=== PATIENT | male | born 1990 | race Two or more races ===

== ENCOUNTER 2018-06-28 01:22 | Emergency (ER) | payer OTHER ==
[2018-06-28 01:31] VITALS: BP 114/65; PULSE 73; TEMP 97.7; BMI 27.3
[2018-06-28] MEDS ORDERED: IBUPROFEN 600 MG TABLET (FP) PO ONE ×2 (01:36→01:38)
--- NOTE | 2018-06-28 01:37 | PDOC ---
History of Present Illness - General Chief Complaint: Injury Stated Complaint: RT WRIST PAIN Time Seen by Provider: 06/28/18 01:35 History Source: Patient Exam Limitations: No Limitations - History of Present Illness Initial Comments: 06/28/18 01:36 This is a 27-year-old male was playing basketball yesterday evening when he fell onto his right hand. Patient comes in complaining of pain in his right hand and wrist. Patient denies any hitting his head or any other trauma. PAST MEDICAL HISTORY: no significant history PAST SURGICAL HISTORY: no significant history FAMILY HISTORY: no pertinant history SOCIAL HISTORY: Pt lives with family and is employed. MEDICATIONS: reviewed ALLERGIES: As per nursing notes Review of Systems General: No fevers or chills, no weakness, no weight loss HEENT: No change in vision. No sore throat,. No ear pain CardioVascular: No chest pain or shortness of breath Respiratory:No cough, or wheezing. Gastrointestinal: no nausea, vomitting, diarrhea or constipation, No rectal bleeding Genitourinary: No dysuria, hematuria, or frequency Musculoskeletal: Right wrist and hand pain post fall Neurologic: No headache, vertigo, dizziness or loss of consciousness Psychiatric: nor depression Skin: No rashes or easy bruising Endocrine: no increased thirst or abnormal weight change Allergic: no skin or latex allergy All other systems reviewed and normal GENERAL: The patient is awake, alert, and fully oriented, in no acute distress. HEAD: Normal with no signs of trauma. EYES: Pupils equal, round and reactive to light, extraocular movements intact, sclera anicteric, conjunctiva clear. EXTREMITIES right wrist and hand: There is tenderness over the lateral wrist and dorsum of the hand. Neurovascular distal is intact. There is no tenderness of the elbow. There is decreased range of motion secondary to pain NEUROLOGICAL: Normal speech, normal gait. grossly intact PSYCH: Normal mood, normal affect. SKIN: Warm, Dry, normal turgor, no rashes or lesions noted. 06/28/18 02:24 X-ray right wrist: there is no fracture, dislocation, no acute pathology Assessment and plan: 27-year-old male comes in complaining of right wrist pain post fall while playing basketball earlier this evening. Patient is a baby. Patient x-rays were negative for any acute pathology. Patient discharged home will follow-up with his primary care doctor as needed. 06/28/18 06:17 Past History - Past Medical History Allergies/Adverse Reactions: Allergies Allergy/AdvReac Type Severity Reaction Status Date / Time No Known Allergies Allergy Unverified 06/28/18 01:25 Home Medications: Ambulatory Orders NK [No Known Home Medication] 06/28/18 COPD: No - Suicide/Smoking/Psychosocial Hx Smoking History: Never smoked *Physical Exam - Vital Signs Last Vital Signs Temp Pulse Resp BP Pulse Ox 97.7 F 73 16 114/65 98 06/28/18 01:27 06/28/18 01:27 06/28/18 01:27 06/28/18 01:27 06/28/18 01:27 *DC/Admit/Observation/Transfer Diagnosis at time of Disposition: Wrist pain, acute Qualifiers: Laterality: right Qualified Code(s): M25.531 - Pain in right wrist - Discharge Dispostion Disposition: HOME Condition at time of disposition: Stable Decision to Admit order: No - Referrals Referrals: Mariia Pryor MD [Primary Care Provider] - - Patient Instructions Additional Instructions: For the pain take Tylenol or Motrin. Return to the emergency department immediately with ANY new, persistent or worsening symptoms. Continue any medications as previously prescribed by your physician. You should follow up with your primary doctor as soon as possible regarding today's emergency department visit. . Please make sure your doctor reviews the results of your emergency evaluation. Thank you for coming to the Emergency Department today for your care. It was a pleasure to see you today. Please note that your evaluation is INCOMPLETE until you follow-up with your doctor. - Post Discharge Activity
== END 2018-06-28 02:29 | disposition home or self-care (01) ==
LOC: FER 01:22
DX: M25.531 Pain in right wrist (principal)
CPT/HCPCS: 73110-TC-RT-FY; 73130-TC-RT-FY; 99281-25

== ENCOUNTER 2019-05-25 10:31 | Emergency (ER) | payer OTHER ==
[2019-05-25 10:39] VITALS: BP 123/79; PULSE 55; TEMP 98.6; BMI 27.0
[2019-05-25] MEDS ORDERED: IBUPROFEN 600 MG TABLET (FP) PO ONE ×2 (11:22→11:29)
--- NOTE | 2019-05-25 12:06 | PDOC ---
History of Present Illness - General Chief Complaint: Injury Stated Complaint: righ hand and right knee pain s/p fall yesterday - History of Present Illness Initial Comments: 05/25/19 11:58 28 yo male no pmhx s/p trip and fall outstretched hand while playing cricket, here with right wrist pain. and right knee pain. no head trauma. no neck or back pain. pain worse with bending and walking. feels clicking sensation in his right knee. pain worse wtih movement. saima not take any medication for pain using topical turmuric. no prior surgery on joints. no prior injuries. Past History - Past Medical History Allergies/Adverse Reactions: Allergies Allergy/AdvReac Type Severity Reaction Status Date / Time No Known Allergies Allergy Verified 05/25/19 10:42 Home Medications: Ambulatory Orders NK [No Known Home Medication] 06/28/18 COPD: No Other medical history: pt denies - Suicide/Smoking/Psychosocial Hx Smoking History: Never smoked Hx Alcohol Use: No Drug/Substance Use Hx: No Review of Systems - Review of Systems Constitutional: No: Chills, Diaphoresis HEENTM: No: Eye Pain Respiratory: No: Cough, Orthopnea ABD/GI: No: Abdominal Distended Musculoskeletal: Yes: Joint Pain Integumentary: No: Bruising All Other Systems: Reviewed and Negative *Physical Exam - Vital Signs Last Vital Signs Temp Pulse Resp BP Pulse Ox 98.6 F 55 L 18 123/79 100 05/25/19 10:32 05/25/19 10:32 05/25/19 10:32 05/25/19 10:32 05/25/19 10:32 - Physical Exam Comments: 05/25/19 12:00 awake alwert head atraumatic. no cervical spine tenderness. lungs clear bilat. heart rrr no mrg ext right wrist from nontendere. no snuff box tenderness. right hand ttp over index MCP, no deformity, min swelling. no eccymosis. 2 + rad / ulnar pulses. elbow, shoulder NT FROm. right knee from. no bony deformity. min swelling. ankle hip NT fRO. all else ext NT FROM. ED Treatment Course - RADIOLOGY Radiology Studies Ordered: Category Date Time Status KNEE 3 POS-RIGHT [RAD] Stat Radiology 05/25/19 11:21 Ordered WRIST- RIGHT [RAD] Stat Radiology 05/25/19 11:20 Ordered - Medications Given in the ED: ED Medications Discontinued Medications Generic Name Dose Route Start Last Admin Trade Name Nicole PRN Reason Stop Dose Admin Ibuprofen 600 mg 05/25/19 11:22 05/25/19 11:31 Motrin - PO 05/25/19 11:23 600 mg ONCE ONE Administration Medical Decision Making - Medical Decision Making 05/25/19 12:06 28 yo male with FOOSH right hand and knee pain.plan xray hand right r/o fx, right knee r/o fx xray negative for fx. plan dc home. ortho fu for knee pain as needed. 05/25/19 12:24 *DC/Admit/Observation/Transfer Diagnosis at time of Disposition: Knee injury - Discharge Dispostion Disposition: HOME Condition at time of disposition: Improved Decision to Admit order: No - Referrals Referrals: Mariia Pryor MD [Primary Care Provider] - Yuri Cervantes MD [Staff Physician] - - Patient Instructions Printed Discharge Instructions: Knee Sprain Additional Instructions: you can ice and elevate the knee to help with inflammation. where knee brace as needed for pain. your xray s are negative. for fracture. you can wear a knee immobilizer as needed for comfort or support. take ibuprofen 400 mg which is availabe over the counter only as needed every 8 hrs for pain. return for any problems or concerns. - Post Discharge Activity
== END 2019-05-25 12:37 | disposition home or self-care (01) ==
LOC: FER 10:31
DX: S89.91XA Unspecified injury of right lower leg, initial encounter (principal)
CPT/HCPCS: 73110-TC-RT-FY; 73130-TC-RT-FY; 73562-TC-RT-FY; 99282-25

== ENCOUNTER 2021-03-04 14:27 | Emergency (ER) | payer OTHER ==
[2021-03-04] MEDS ORDERED: IBUPROFEN 400 MG TABLET (FP) PO ONE ×2 (15:04→15:06)
[2021-03-04 15:26] VITALS: BP 120/79; PULSE 63; TEMP 98.9; BMI 28.5
[2021-03-04] MEDS ORDERED: LIDOCAINE 5% TOPICAL PATCH TP ONE (15:33)
[2021-03-04] MEDS ORDERED: LIDOCAINE PATCH REMOVAL MC SCH (22:00)
== END 2021-03-04 15:43 | disposition home or self-care (01) ==
LOC: FER 14:27
DX: S16.1XXA Strain of muscle, fascia and tendon at neck level, initial encounter (principal)
CPT/HCPCS: 99283-25

== ENCOUNTER 2021-10-20 17:45 | Emergency (ER) | payer OTHER ==
[2021-10-20 17:58] VITALS: BP 119/68; PULSE 94; TEMP 102.3; BMI 29.8
== END 2021-10-20 18:15 | disposition home or self-care (01) ==
LOC: FER 17:45
DX: B34.9 Viral infection, unspecified (principal)
CPT/HCPCS: 71045-TC-FY; 87804; 87807; 99284-25; C9803; U0003; U0005

== ENCOUNTER 2022-03-25 13:15 | Emergency (ER) | payer OTHER ==
[2022-03-25 13:24] VITALS: BP 142/87; PULSE 87; TEMP 99; BMI 29.8
== END 2022-03-25 13:49 | disposition home or self-care (01) ==
LOC: FER 13:15
DX: B02.9 Zoster without complications (principal)
CPT/HCPCS: 99283-25